=== PATIENT | male | born 1980 | race African-American/Black ===

== ENCOUNTER 2017-08-31 03:20 | Emergency (ER) | payer SELFPAY ==
[~2017-08-31] VITALS: Ht 170.2 cm; Wt 97.0 kg
[2017-08-31] MEDS ORDERED: FENTANYL CITRATE/PF 50MCG/ML 2ML VIAL IV ONE (04:45)
[2017-08-31] MEDS ORDERED: ONDANSETRON HCL 4MG/2ML VIAL IV ONE (04:45)
[2017-08-31] MEDS ORDERED: PROPOFOL 200MG/20ML VIAL IV ONE (04:45)
[2017-08-31 07:06] VITALS: BP 160/80
== END 2017-08-31 07:09 | disposition home or self-care (01) ==
LOC: ER 03:20
DX: S43.085A Other dislocation of left shoulder joint, initial encounter (principal); I10 Essential (primary) hypertension; Z98.890 Other specified postprocedural states; X58.XXXA Exposure to other specified factors, initial encounter; Y93.89 Activity, other specified; Y92.89 Other specified places as the place of occurrence of the external cause
CPT/HCPCS: 23650; 73030; 96374; 99152; 99153; 99285; J2405; J3010; Z7610; J2704